=== PATIENT | female | born 1950 | race Caucasian/White ===

== ENCOUNTER 2018-07-01 07:28 | Day surgery (SDC) | payer OTHER ==
[2018-07-01] MEDS ORDERED: LIDOCAINE 2% MPF 5 ML VIAL ONE (07:57)
[2018-07-01] MEDS ORDERED: LIDOCAINE HCL/PF 3.5% OPTH GEL ONE (07:58)
[2018-07-01] MEDS ORDERED: NA CHLORIDE 0.9% 500 ML ONE (07:58)
[2018-07-01] MEDS ORDERED: BUPIVACAINE 0.25% PF 10 ML VIAL ONE (07:58)
[2018-07-01] MEDS ORDERED: TETRACAINE HCL 0.5% 2ML OPTH ONE (07:58)
[2018-07-01] MEDS: CYCLOPENTOLATE 1% OPTH 2 ML ONE ×3 (08:01→08:16)
[2018-07-01] MEDS: PHENYLEPHRINE 10% OPTH 5ML ONE ×3 (08:01→08:16)
[2018-07-01] MEDS ORDERED: NS 0.9% VIAL 10 ML ONE (08:02)
[2018-07-01] MEDS ORDERED: EPINEPHRINE/PF 1 MG/ML AMP ONE (08:02)
[2018-07-01] MEDS ORDERED: DUOVISC 1 KIT OPTH ONE (08:02)
[2018-07-01] MEDS ORDERED: BALANCED SALT IRRIG PLAIN 500 ML BTL IRR ONE (08:02)
[2018-07-01] MEDS ORDERED: MOXIFLOXACIN HCL 10 DROPS/ML **OR USE OPTH ONE (08:03)
[2018-07-01] MEDS ORDERED: LIDOCAINE 1% MPF 2 ML AMPULE ONE (08:03)
[2018-07-01] MEDS ORDERED: FENTANYL CITR 100 MCG/2 ML ONE (08:35)
[2018-07-01] MEDS ORDERED: MIDAZOLAM HCL 2 MG/2 ML INJ ONE (08:36)
--- NOTE | 2018-07-01 09:40 | P.BOP ---
Preoperative diagnosis: Nuclear sclerotic cataract OD Postoperative diagnosis: Same Primary procedure: Phacoemulsification with IOL OD Estimated blood loss: None Anesthesia: Local (Topical with anesthesia for cataract surgery) Complications: None Implants: ZCB00 +22.5 Transferred to: Other (Day surgery) Condition: Good
--- NOTE | 2018-07-01 21:40 | OP ---
Date of Procedure: 07/01/2018 Surgeon: Landy Mckenzie MD Anesthesiologist: Daly De Leon CRNA; Jennifer Chi CRNA; and Vahid Claudio MD. Preoperative Diagnosis: Nuclear sclerotic cataract, right eye. Operation Performed: Phacoemulsification with intraocular lens implant, right eye. Anesthesia: Per cataract surgery. Complications: None. Description Of Procedure: In the operating room the patient was prepped and draped in the usual sterile fashion for ophthalmic surgery. A lid speculum was placed in the right eye. Two paracentesis sites were made superiorly and inferiorly in the limbal cornea. Viscoat was placed in the anterior chamber and a crescent blade was used to make a corneal groove and tunnel, and a keratome was used to enter the anterior chamber. Provisc was placed in the anterior chamber and a 360 degree capsulotomy was performed with a cystitome. The lens was hydrodissected with BSS and rotated freely. The lens was removed with a stop and chop technique. 11.12 phaco CDE was used to remove the lens. Residual cortex was removed with the irrigation and aspiration. Provisc was placed in the capsular bag. A ZCB00 +22.5 lens was placed in the capsular bag without complications. Irrigation and aspiration were used to remove residual viscoelastic. The paracentesis sites were hydrated with BSS. The wound and paracentesis sites were inspected and found to be watertight. Vigamox 0.07 cc was placed intracamerally at the end of the procedure. The eye was irrigated with balanced salt solution. The eye was patched with a soft cotton patch and Noriega metal shield. The patient was returned to day surgery in good condition. Comments: Akten was placed in the anterior chamber in Day Surgery and irrigated out of the eye with BSS in the OR. Preservative-free 1% lidocaine was placed in the anterior chamber prior to Viscoat and readministered during phacoemulsification. Discharge Instructions: Ms. Sanders is discharged to home in good condition and is to follow up with Dr. Mckenzie in the morning. ZULEYMA/HUONG Voice ID: [id number] Report ID: [id number] PETE
== END 2018-07-01 10:28 | disposition home or self-care (01) ==
LOC: OR 07:28
PROVIDERS: ATTEND Ophthalmology Retina Specialist
PROC: 08RJ3JZ Replacement of Right Lens with Synthetic Substitute, Percutaneous Approach (ICD-10-PCS; principal; 2018-07-01 09:10)
DX: H25.11 Age-related nuclear cataract, right eye (principal); H40.051 Ocular hypertension, right eye; H04.123 Dry eye syndrome of bilateral lacrimal glands; K21.9 Gastro-esophageal reflux disease without esophagitis; Z88.0 Allergy status to penicillin; Z88.1 Allergy status to other antibiotic agents; Z88.3 Allergy status to other anti-infective agents; Z83.518 Family history of other specified eye disorder
CPT/HCPCS: 66984; J0171; J2001; J2250; J3010

== ENCOUNTER 2018-08-05 07:18 | Day surgery (SDC) | payer OTHER ==
[2018-08-05] MEDS ORDERED: TETRACAINE HCL 0.5% 2ML OPTH ONE (08:01)
[2018-08-05] MEDS ORDERED: NA CHLORIDE 0.9% 500 ML ONE (08:01)
[2018-08-05] MEDS ORDERED: LIDOCAINE 2% MPF 5 ML VIAL ONE ×2 (08:01→09:19)
[2018-08-05] MEDS ORDERED: BUPIVACAINE 0.25% PF 10 ML VIAL ONE (08:01)
[2018-08-05] MEDS ORDERED: LIDOCAINE HCL/PF 3.5% OPTH GEL ONE (08:02)
[2018-08-05] MEDS: PHENYLEPHRINE 10% OPTH 5ML ONE ×3 (08:09→08:21)
[2018-08-05] MEDS: CYCLOPENTOLATE 1% OPTH 2 ML ONE ×3 (08:09→08:21)
[2018-08-05] MEDS ORDERED: BALANCED SALT IRRIG PLAIN 500 ML BTL IRR ONE (08:17)
[2018-08-05] MEDS ORDERED: NS 0.9% VIAL 10 ML ONE (08:17)
[2018-08-05] MEDS ORDERED: EPINEPHRINE/PF 1 MG/ML AMP ONE (08:17)
[2018-08-05] MEDS ORDERED: DUOVISC 1 KIT OPTH ONE (08:17)
[2018-08-05] MEDS ORDERED: MOXIFLOXACIN HCL 10 DROPS/ML **OR USE OPTH ONE (08:20)
[2018-08-05] MEDS ORDERED: LIDOCAINE 1% MPF 2 ML AMPULE ONE (08:20)
[2018-08-05] MEDS ORDERED: PROPOFOL 200 MG/20 ML VIAL IV ONE (09:19)
[2018-08-05] MEDS ORDERED: FENTANYL CITR 100 MCG/2 ML ONE (09:23)
[2018-08-05] MEDS ORDERED: MIDAZOLAM HCL 2 MG/2 ML INJ ONE (09:23)
--- NOTE | 2018-08-05 09:58 | P.BOP ---
Preoperative diagnosis: Nuclear sclerotic cataract OS Postoperative diagnosis: Same Primary procedure: Phacoemulsification with IOL OS Estimated blood loss: None Anesthesia: Local (Topical with anesthesia for cataract surgery) Complications: None Implants: ZCB00 +26.0 Transferred to: Other (Day surgery) Condition: Good
--- NOTE | 2018-08-05 20:42 | OP ---
Date of Procedure: 08/05/2018 Surgeon: Landy Mckenzie MD Anesthesiologist: Daly De Leon CRNA and Scooter Medina MD Preoperative Diagnosis: Nuclear sclerotic cataract, left eye. Operation Performed: Phacoemulsification with intraocular lens implant, left eye. Anesthesia: Per cataract surgery. Complications: Description Of Procedure: In the operating room the patient was prepped and draped in the usual ster ile fashion for ophthalmic surgery. A lid speculum was placed in the left eye. Two paracentesis sit es were made superiorly and inferiorly in the limbal cornea. Viscoat was placed in the anterior bailey lyndon and a crescent blade was used to make a corneal groove and tunnel, and a keratome was used to ent er the anterior chamber. Provisc was placed in the anterior chamber and a 360 degree capsulotomy was performed with a cystitome. The lens was hydrodissected with BSS and rotated freely. The lens was removed with a stop and chop technique. 6.43 Phaco CDE was used to remove the lens. Residual cortex was removed with the irrigation and aspiration. Provisc was placed in the capsular bag. A ZCB00 +2 6.0 lens was placed in the capsular bag without complications. Irrigation and aspiration was used to remove residual viscoelastic. The paracentesis sites were hydrated with BSS. The wound and paracen tesis sites were inspected and found to be watertight. Vigamox 0.07 cc was placed intracamerally at the end of the procedure. The eye was irrigated with balanced salt solution. The eye was patched wi th a soft cotton patch and Noriega metal shield. The patient was returned to day surgery in good condition. Comments: Akten was placed in the eye in Day Surgery and irrigated out of the eye with BSS in the OR . Preservative-free 1% lidocaine was placed in the anterior chamber prior to Viscoat. Discharge Instructions: Ms. Sanders is discharged to home in good condition and is to follow up wi th Dr. Mckenzie in the morning. ZULEYMA/MODL Voice ID: [id number] Report ID: [id number]
== END 2018-08-05 10:28 | disposition home or self-care (01) ==
LOC: OR 07:18
PROVIDERS: ATTEND Ophthalmology Retina Specialist
PROC: 08RK3JZ Replacement of Left Lens with Synthetic Substitute, Percutaneous Approach (ICD-10-PCS; principal; 2018-08-05 09:05)
DX: H25.12 Age-related nuclear cataract, left eye (principal); K21.9 Gastro-esophageal reflux disease without esophagitis; M19.90 Unspecified osteoarthritis, unspecified site; Z79.899 Other long term (current) drug therapy
CPT/HCPCS: 66984; J0171; J2001; J2250; J2704; J3010